=== PATIENT | female | born 1955 | race Caucasian/White ===

== ENCOUNTER 2016-08-06 15:56 | Inpatient (IN) | payer MEDICARE ==
[~2016-08-06] VITALS: Ht 167.6 cm; Wt 123.4 kg
[2016-08-06] VITALS (22 sets, daily range): BP systolic 70–125; RESP 15–25; TEMP 97.4–97.8; Ht 167.6 cm; Wt 123.4 kg
[~2016-08-06 15:56] MED LIST: BACITRACIN 50,000 UNITS INJ IRRIG ONE; DEXAMETHASONE 4 MG/ML VIAL IV ONE; FENTANYL 100 MCG/2 ML AMP IV ONE; KETAMINE INJ 50 MG/ML VIAL IV ONE; ONDANSETRON 4 MG VIAL IV PUSH ONE; PHENYLEPHRINE 10 MG/ML VIAL IV ONE; PROPOFOL 20 ML PER ML IV ONE; ROCURONIUM 50 MG VIAL IV ONE
[2016-08-06] MEDS ORDERED: CLINDAMYCIN 900 MG in DEXTROSE 5% 50 ML IV ONE (16:45)
[2016-08-06] MEDS ORDERED: SODIUM CHLORIDE 0.9% 1,000 ML IV SCH (17:15)
[2016-08-06] MEDS ORDERED: DEXTROSE 50% SYRINGE 50 ML IV PRN (17:15)
[2016-08-06] MEDS ORDERED: OXYCODONE 5 MG TAB PO PRN ×2 (17:15→17:25)
[2016-08-06] MEDS ORDERED: BISACODYL 10 MG SUPP RECTAL PRN (17:15)
[2016-08-06] MEDS ORDERED: ACETAMINOPHEN 325 MG TAB PO PRN (17:15)
[2016-08-06] MEDS ORDERED: MAG HYDROX 30 ML UDC PO PRN (17:15)
[2016-08-06] MEDS ORDERED: ALU/MAG/SIM 30 ML UDC PO PRN (17:15)
[2016-08-06] MEDS ORDERED: GLUCAGON 1 MG VIAL IM PRN (17:15)
[2016-08-06] MEDS ORDERED: MORPHINE 4 MG/ML SYR IV PRN ×3 (17:15→19:25)
[2016-08-06] MEDS ORDERED: MORPHINE 2 MG/ML SYR IV PRN ×3 (17:15→19:25)
[2016-08-06] MEDS ORDERED: BISACODYL EC 5 MG TAB PO PRN (17:15)
[2016-08-06] MEDS ORDERED: SALINE FLUSH 10 ML FLUSH PRN ×2 (17:15→19:25)
[2016-08-06] MEDS ORDERED: ONDANSETRON 4 MG VIAL IV PRN (17:25)
[2016-08-06] MEDS ORDERED: MEPERIDINE 25 MG/ML IV PRN (17:25)
[2016-08-06] MEDS ORDERED: DILAUDID 1 MG/ML AMP IV PRN (17:25)
[2016-08-06] MEDS ORDERED: VANCOMYCIN 1,750 MG in SODIUM CHLORIDE 0.9% 500 ML IV SCH (19:25)
[2016-08-06] MEDS: DIGOXIN 0.125 MG TAB PO SCH (19:26)
[2016-08-06] MEDS ORDERED: [UNRECOGNIZED DRUG - REMARK] XX SCH (19:37)
[2016-08-06] MEDS ORDERED: PHARMACY TO DOSE VANCOMYCIN IV SCH (19:40)
[2016-08-06] MEDS ORDERED: SALINE FLUSH 10 ML FLUSH SCH (20:00)
[2016-08-06] MEDS: SALINE FLUSH 10 ML FLUSH SCH (20:24)
[2016-08-06] MEDS: DUONEB INH SCH ×2 (20:33→23:25)
[2016-08-06] MEDS: NEB-BROVANA 15 MCG/2 ML INH SCH (20:33)
[2016-08-06] MEDS: NEB-BUDESONIDE 0.5 MG INH SCH (20:33)
[2016-08-06] MEDS: FAMOTIDINE 20 MG TAB PO SCH (21:40)
[2016-08-06] MEDS: CARVEDILOL 25 MG TAB PO SCH (21:40)
[2016-08-06] MEDS: LEVEMIR INSULIN SUBQ SCH (21:41)
[2016-08-06] MEDS ORDERED: DEXTROSE 50% SYRINGE 50 ML IV ONE (21:45)
[2016-08-06] MEDS ORDERED: humuLIN REG INSULIN IV PUSH ONE (21:45)
[2016-08-07] VITALS (49 sets, daily range): BP systolic 105–157; RESP 9–26; TEMP 97.5–98.5
[2016-08-07] MEDS ORDERED: CLINDAMYCIN 900 MG in DEXTROSE 5% 50 ML IV SCH ×2
[2016-08-07] MEDS: DUONEB INH SCH ×6 (02:42→22:43)
[2016-08-07] MEDS ORDERED: KAYEXOLATE 15 GM/60 ML BTL PO ONE (04:54)
[2016-08-07] MEDS: NEB-BROVANA 15 MCG/2 ML INH SCH ×2 (05:30→16:58)
[2016-08-07] MEDS: NEB-BUDESONIDE 0.5 MG INH SCH ×2 (05:31→16:58)
[2016-08-07] MEDS: SODIUM CHLORIDE 0.9% FLUSH BAG 500 ML IV SCH (05:50)
[2016-08-07] MEDS ORDERED: SODIUM CHLORIDE 0.9% FLUSH BAG 500 ML IV SCH (06:00)
[2016-08-07] MEDS: LEVOTHYROXINE 0.1 MG TAB PO SCH (06:01)
[2016-08-07] MEDS ORDERED: NEB-ALBUTEROL 2.5 MG/3 ML INH ONE (07:40)
[2016-08-07] MEDS ORDERED: humuLIN REG INSULIN IV PUSH ONE (07:40)
[2016-08-07] MEDS ORDERED: SODIUM CHLORIDE 0.9% 1,000 ML IV ONE ×2 (07:40)
[2016-08-07] MEDS: CARVEDILOL 25 MG TAB PO SCH ×2 (09:11→21:00)
[2016-08-07] MEDS: SALINE FLUSH 10 ML FLUSH SCH ×2 (09:11→21:01)
[2016-08-07] MEDS: FAMOTIDINE 20 MG TAB PO SCH ×2 (09:11→21:00)
[2016-08-07] MEDS: LEVEMIR INSULIN SUBQ SCH ×2 (09:17→21:02)
[2016-08-07] MEDS ORDERED: NEB-RACEPINEPH 0.5 ML INH STA (10:02)
[2016-08-07] MEDS ORDERED: SUGAMMADEX 200 MG/2 ML VIAL IV ONE (10:05)
[2016-08-07] MEDS: VANCOMYCIN 1,500 MG in SODIUM CHLORIDE 0.9% 250 ML IV SCH ×3 (11:11→21:11)
[2016-08-07] MEDS: DIGOXIN 0.125 MG TAB PO SCH (12:50)
[2016-08-07] MEDS: OXYCODONE/APAP 7.5/325 TAB PO PRN (13:01)
[2016-08-07] MEDS: SODIUM CHLORIDE 0.9% 1,000 ML IV SCH (17:45)
[2016-08-07] MEDS: MORPHINE 2 MG/ML SYR IV PRN (21:04)
[2016-08-08] VITALS (46 sets, daily range): BP systolic 108–163; RESP 13–29; TEMP 97.8–98.8
[2016-08-08] MEDS: OXYCODONE/APAP 7.5/325 TAB PO PRN ×5 (00:08→21:25)
[2016-08-08] MEDS: MORPHINE 2 MG/ML SYR IV PRN ×3 (01:02→11:39)
[2016-08-08] MEDS: DUONEB INH SCH ×6 (02:59→22:47)
[2016-08-08] MEDS: SODIUM CHLORIDE 0.9% FLUSH BAG 500 ML IV SCH (05:52)
[2016-08-08] MEDS: SODIUM CHLORIDE 0.9% 1,000 ML IV SCH (05:53)
[2016-08-08] MEDS: LEVOTHYROXINE 0.1 MG TAB PO SCH (06:02)
[2016-08-08] MEDS: NEB-BUDESONIDE 0.5 MG INH SCH ×2 (07:22→19:37)
[2016-08-08] MEDS: NEB-BROVANA 15 MCG/2 ML INH SCH ×2 (07:22→19:37)
[2016-08-08] MEDS: SALINE FLUSH 10 ML FLUSH SCH ×2 (08:20→21:24)
[2016-08-08] MEDS ORDERED: Furosemide 20 MG/2 ML VIAL IV ONE ×2 (08:20)
[2016-08-08] MEDS: FAMOTIDINE 20 MG TAB PO SCH ×2 (08:20→21:24)
[2016-08-08] MEDS: CARVEDILOL 25 MG TAB PO SCH ×2 (08:20→21:24)
[2016-08-08] MEDS: LEVEMIR INSULIN SUBQ SCH ×2 (08:34→21:24)
[2016-08-08] MEDS: VANCOMYCIN 1,500 MG in SODIUM CHLORIDE 0.9% 250 ML IV SCH ×2 (11:17→21:46)
[2016-08-08] MEDS: DIGOXIN 0.125 MG TAB PO SCH (13:28)
[2016-08-08] MEDS ORDERED: MISSING DOSE XX ONE (17:00)
[2016-08-08] MEDS: ONDANSETRON 4 MG VIAL IV PRN (21:24)
[2016-08-09] VITALS: RESP 19
[2016-08-09 02:22] VITALS: BP_SYST 139; RESP 22; TEMP 98.5
[2016-08-09] MEDS: DUONEB INH SCH ×6 (02:24→22:42)
[2016-08-09] MEDS: OXYCODONE/APAP 7.5/325 TAB PO PRN ×2 (04:34→08:55)
[2016-08-09] MEDS: NEB-BROVANA 15 MCG/2 ML INH SCH ×2 (05:08→17:05)
[2016-08-09] MEDS: NEB-BUDESONIDE 0.5 MG INH SCH ×2 (05:08→17:05)
[2016-08-09] MEDS: ONDANSETRON 4 MG VIAL IV PRN ×2 (05:32→21:20)
[2016-08-09] MEDS: MORPHINE 2 MG/ML SYR IV PRN (05:33)
[2016-08-09] MEDS: LEVOTHYROXINE 0.1 MG TAB PO SCH (06:13)
[2016-08-09] MEDS: SODIUM CHLORIDE 0.9% FLUSH BAG 500 ML IV SCH (06:15)
[2016-08-09 07:08] VITALS: BP_SYST 140; RESP 20; TEMP 98.6
[2016-08-09] MEDS: FAMOTIDINE 20 MG TAB PO SCH ×2 (08:54→20:23)
[2016-08-09] MEDS: CARVEDILOL 25 MG TAB PO SCH ×2 (08:54→20:23)
[2016-08-09] MEDS: LEVEMIR INSULIN SUBQ SCH ×2 (08:56→21:20)
[2016-08-09] MEDS: SALINE FLUSH 10 ML FLUSH SCH ×2 (08:56→19:38)
[2016-08-09] MEDS ORDERED: OXYCODONE 5 MG TAB PO PRN (09:35)
[2016-08-09] MEDS: ACETAMINOPHEN 500 MG TAB PO SCH ×2 (10:14→18:02)
[2016-08-09] MEDS: TRIAMCIN 0.1% OINT 15 GM TOPICAL SCH ×2 (10:14→20:23)
[2016-08-09 11:19] VITALS: BP_SYST 123; RESP 16; TEMP 98.6
[2016-08-09] MEDS: DIGOXIN 0.125 MG TAB PO SCH (11:43)
[2016-08-09] MEDS: OXYCODONE 5 MG TAB PO PRN ×2 (13:27→18:53)
[2016-08-09 15:32] VITALS: BP_SYST 125; RESP 16; TEMP 98
[2016-08-09 18:48] VITALS: BP_SYST 133; RESP 16; TEMP 98
[2016-08-09] MEDS: POLYETHYLENE GLYCOL 17 GM PACKET PO SCH (20:22)
[2016-08-09] MEDS: VANCOMYCIN 1,500 MG in SODIUM CHLORIDE 0.9% 250 ML IV SCH (22:34)
[2016-08-10] VITALS (7 sets, daily range): BP systolic 104–152; RESP 14–22; TEMP 97.4–98.5
[2016-08-10] MEDS: ACETAMINOPHEN 500 MG TAB PO SCH ×3 (00:55→16:43)
[2016-08-10] MEDS: OXYCODONE 5 MG TAB PO PRN ×5 (00:56→23:39)
[2016-08-10] MEDS: DUONEB INH SCH ×6 (02:15→23:27)
[2016-08-10] MEDS: NEB-BROVANA 15 MCG/2 ML INH SCH ×2 (05:22→17:06)
[2016-08-10] MEDS: NEB-BUDESONIDE 0.5 MG INH SCH ×2 (05:23→17:06)
[2016-08-10] MEDS: SODIUM CHLORIDE 0.9% FLUSH BAG 500 ML IV SCH (05:36)
[2016-08-10] MEDS: LEVOTHYROXINE 0.1 MG TAB PO SCH (07:08)
[2016-08-10] MEDS: FAMOTIDINE 20 MG TAB PO SCH ×2 (08:24→21:07)
[2016-08-10] MEDS: POLYETHYLENE GLYCOL 17 GM PACKET PO SCH ×2 (08:24→21:00)
[2016-08-10] MEDS: TRIAMCIN 0.1% OINT 15 GM TOPICAL SCH ×2 (08:25→21:41)
[2016-08-10] MEDS: CARVEDILOL 25 MG TAB PO SCH ×2 (08:25→21:07)
[2016-08-10] MEDS: LEVEMIR INSULIN SUBQ SCH ×2 (08:25→21:00)
[2016-08-10] MEDS: SALINE FLUSH 10 ML FLUSH SCH ×2 (08:32→19:42)
[2016-08-10] MEDS: DIGOXIN 0.125 MG TAB PO SCH (11:54)
[2016-08-11] MEDS: ACETAMINOPHEN 500 MG TAB PO SCH ×2 (01:32→08:28)
[2016-08-11] MEDS: DUONEB INH SCH ×3 (02:52→11:03)
[2016-08-11 04:18] VITALS: BP_SYST 144; RESP 18; TEMP 98.5
[2016-08-11] MEDS: SODIUM CHLORIDE 0.9% FLUSH BAG 500 ML IV SCH (06:00)
[2016-08-11] MEDS: LEVOTHYROXINE 0.1 MG TAB PO SCH (06:46)
[2016-08-11] MEDS ORDERED: PNEUMO VAC 25 MCG/0.5 ML VL IM.VACC ONE (06:50)
[2016-08-11] MEDS: NEB-BUDESONIDE 0.5 MG INH SCH (07:15)
[2016-08-11] MEDS: NEB-BROVANA 15 MCG/2 ML INH SCH (07:15)
[2016-08-11 08:15] VITALS: BP_SYST 153; RESP 16; TEMP 98.4
[2016-08-11] MEDS: SALINE FLUSH 10 ML FLUSH SCH (08:22)
[2016-08-11] MEDS: FAMOTIDINE 20 MG TAB PO SCH (08:26)
[2016-08-11] MEDS: OXYCODONE 5 MG TAB PO PRN (08:26)
[2016-08-11] MEDS: CARVEDILOL 25 MG TAB PO SCH (08:27)
[2016-08-11] MEDS: LEVEMIR INSULIN SUBQ SCH (08:27)
[2016-08-11] MEDS: TRIAMCIN 0.1% OINT 15 GM TOPICAL SCH (08:27)
[2016-08-11] MEDS: POLYETHYLENE GLYCOL 17 GM PACKET PO SCH (08:31)
[2016-08-11] MEDS ORDERED: MISSING DOSE XX ONE (12:00)
[2016-08-11 12:03] VITALS: BP_SYST 138; RESP 16; TEMP 98.3
[2016-08-11] MEDS: DIGOXIN 0.125 MG TAB PO SCH (12:06)
[2016-08-11 12:35] VITALS: BP_SYST 138; RESP 16; TEMP 98.3
== END 2016-08-11 13:26 | DRG 492 ==
LOC: ENRESERVTM → ENRESERVDT → SURG 15:56 → ENPENDDIS 17:14 → SDS 17:14 → ICU 19:17 → 2NO 08-08 18:09
PROVIDERS: ADMIT Family Medicine; ATTEND Family Medicine
PROC: 0QSH06Z Reposition Left Tibia with Intramedullary Internal Fixation Device, Open Approach (ICD-10-PCS; principal; 2016-08-06 16:59)
CPT/HCPCS: 36430; 36600; 76001; 80048; 80051; 80053; 80069; 80162; 80202; 82040; 82330; 82803; 82947; 83540; 83605; 83735; 83880; 84100; 84132; 84466; 84484; 85025; 86850; 86900; 86901; 86923; 90732; 94640; 94660; 94799; 99223; 99232; 99233; 99239; 99291